=== PATIENT | female | born 1985 | race Caucasian/White ===

== ENCOUNTER 2016-04-14 20:03 | Emergency (ER) | payer OTHER ==
[~2016-04-14] VITALS: Ht 177.8 cm; Wt 195.0 kg
[~2016-04-14 20:03] MED LIST: 'KLONOPIN0.5 MG PO; AMBIEN10 M1 PO; AMOXICILLIN500 M2 PO; ANAPROX DS550 MG PO; BUSPAR15 MG PO; EFFEXOR XR150 M1 PO; HYDR25T PO; LAMICTAL200 MG PO; PREDNISONE10 MG PO; PRILOSEC20 M2 PO; PROZAC20 MG PO; Phenergan25 MG PO; SEROQUEL300 MG PO; VISTARIL50 MG PO; ZANTAC 150150 MG PO; ZOFRAN ODT4 MG SL
[2016-04-14 21:54] LABS: HEMATOCRIT 38.4 % (37.0-47.0); HEMOGLOBIN 12.3 g/dl (12.0-16.0); MEAN CELL VOLUME 83.5 fl (81.0-99.0); MEAN CORPUSCULAR HGB 26.7 pg (27.0-31.0); MEAN PLATELET VOLUME 11.6 fl (9.6-12.3); PLATELET COUNT AUTOMATED 336 10*3/uL (130-400); RED CELL DISTRI WIDTH 14.4 % (0-14.5); WHITE BLOOD COUNT 12.8 10*3/uL (4.8-10.8)
[2016-04-14 21:55] LABS: BILIRUBIN NEGATIVE (NEGATIVE); BLOOD NEGATIVE (NEGATIVE); CLARITY SL CLOUDY (CLEAR); COLOR YELLOW (YELLOW); GLUCOSE NEGATIVE (NEGATIVE); KETONE NEGATIVE (NEGATIVE); LEUKO ESTERASE TRACE (NEGATIVE); NITRITE NEGATIVE (NEGATIVE); PROTEIN NEGATIVE (NEGATIVE); UROBILINOGEN 0.2 E.U./dl (0.2-1.0)
[2016-04-14 22:09] LABS: ALBUMIN 3.7 gm/dl (3.1-4.5); ALKALINE PHOSPHATASE 121 U/L (45-117); BILIRUBIN, TOTAL 0.4 mg/dl (0.2-1.0); BUN 10 mg/dl (7-24); CARBON DIOXIDE 28 mmol/L (21-32); CHLORIDE 101 mmol/L (98-107); EST GLOM FILT AFRICAN AMERICAN > 60 ml/min; GLUCOSE 112 mg/dL (65-99); POTASSIUM 3.5 mmol/L (3.5-5.1); SGOT/AST 37 IU/L (3-35); SGPT/ALT 63 U/L (12-78); SODIUM 140 mmol/L (136-145); TOTAL PROTEIN 8.3 gm/dL (6.4-8.2)
[2016-04-14 22:19] LABS: RBC 0-2 rbc/hpf (0-2)
[2016-04-14 22:20] LABS: BACTERIA 2+; URINE REFLEX COMMENT YES (NO)
[2016-04-14 22:26] LABS: EOSINOPHIL # 0.3 10*3/uL (0-0.4); EOSINOPHILS 2 % (1-4); LYMPHOCYTE # 3.7 10*3/uL (1.3-4.4); NEUTROPHIL # 7.8 10*3/uL (2.3-7.9); NEUTROPHILS 61 % (47-73); PLATELET SUFFICIENCY NORMAL (NORMAL); TOTAL CELLS COUNTED 100 #CELLS
[2016-04-14] MEDS ORDERED: MACROBID100 M1 PO (23:06)
== END 2016-04-15 00:11 | disposition home or self-care (01) ==
LOC: ED 20:03
PROVIDERS: Nurse Practitioner Family
DX: N39.0 Urinary tract infection, site not specified (principal); F17.200 Nicotine dependence, unspecified, uncomplicated; Z90.49 Acquired absence of other specified parts of digestive tract; Z98.890 Other specified postprocedural states

== ENCOUNTER 2016-08-24 23:32 | Emergency (ER) | payer OTHER ==
[~2016-08-24] VITALS: Ht 177.8 cm
[~2016-08-24 23:32] MED LIST changes: +MACROBID100 M1 PO
[2016-08-25 00:23] LABS: BASO % 0.2 % (0.0-1.0); EOS # 0.2 10*3/uL (0.0-0.4); EOS % 1.4 % (1.0-4.0); HEMOGLOBIN 11.6 g/dl (12.0-16.0); LYMPH # 4.9 10*3/uL (1.3-4.4); LYMPH % 37.4 % (27.0-41.0); MEAN CELL VOLUME 84.1 fl (81.0-99.0); MEAN CORPUSCULAR HGB 26.4 pg (27.0-31.0); MEAN CORPUSCULAR HGB CONC 31.4 g/dl (33.0-37.0); MEAN PLATELET VOLUME 11.4 fl (9.6-12.3); MONO # 1.1 10*3/uL (0.1-1.0); MONO % 8.7 % (3.0-9.0); NEUT # 6.8 10*3/uL (2.3-7.9); PLATELET COUNT AUTOMATED 349 10*3/uL (130-400); RED CELL DISTRI WIDTH 14.6 % (0-14.5); WHITE BLOOD COUNT 13.1 10*3/uL (4.8-10.8)
[2016-08-25 00:41] LABS: ALBUMIN 3.4 gm/dl (3.1-4.5); ALKALINE PHOSPHATASE 125 U/L (45-117); BILIRUBIN, TOTAL 0.3 mg/dl (0.2-1.0); BUN 11 mg/dl (7-24); CARBON DIOXIDE 32 mmol/L (21-32); CHLORIDE 100 mmol/L (98-107); EST GLOM FILT AFRICAN AMERICAN > 60 ml/min; GLUCOSE 105 mg/dL (65-99); POTASSIUM 3.7 mmol/L (3.5-5.1); SGOT/AST 29 IU/L (3-35); SGPT/ALT 54 U/L (12-78); SODIUM 138 mmol/L (136-145); TOTAL PROTEIN 7.9 gm/dL (6.4-8.2)
== END 2016-08-25 01:38 | disposition home or self-care (01) ==
LOC: ED 23:32
PROVIDERS: Emergency Medicine
DX: F41.9 Anxiety disorder, unspecified (principal); Z90.49 Acquired absence of other specified parts of digestive tract; Z98.890 Other specified postprocedural states; Z79.899 Other long term (current) drug therapy

== ENCOUNTER 2016-12-29 10:10 | Emergency (ER) | payer OTHER ==
[~2016-12-29] VITALS: Ht 177.8 cm; Wt 208.7 kg
[2016-12-29] MEDS ORDERED: LIDEX 0.05% CRE15 GM T (10:20)
== END 2016-12-29 11:25 | disposition home or self-care (01) ==
LOC: ED 10:10
DX: L25.9 Unspecified contact dermatitis, unspecified cause (principal); R03.0 Elevated blood-pressure reading, without diagnosis of hypertension

== ENCOUNTER 2018-05-15 14:06 | Emergency (ER) | payer OTHER ==
[~2018-05-15] VITALS: Ht 177.8 cm; Wt 204.1 kg
[~2018-05-15 14:06] MED LIST changes: +LIDEX 0.05% CRE15 GM T
[2018-05-15] MEDS ORDERED: TAMIFLU 75MG CA75 MG PO (14:54)
== END 2018-05-15 15:15 | disposition home or self-care (01) ==
LOC: ED 14:06
DX: J10.1 Influenza due to other identified influenza virus with other respiratory manifestations (principal); Z79.2 Long term (current) use of antibiotics; Z79.899 Other long term (current) drug therapy; Z90.49 Acquired absence of other specified parts of digestive tract

== ENCOUNTER 2018-11-22 16:31 | Emergency (ER) | payer MEDICARE, OTHER ==
[~2018-11-22] VITALS: Ht 177.8 cm; Wt 208.7 kg
[~2018-11-22 16:31] MED LIST changes: +TAMIFLU 75MG CA75 MG PO
[2018-11-22] MEDS ORDERED: IBU800 MG PO (18:11)
== END 2018-11-22 18:31 | disposition home or self-care (01) ==
LOC: ED 16:31
DX: S80.02XA Contusion of left knee, initial encounter (principal); M25.561 Pain in right knee; Z79.899 Other long term (current) drug therapy; W01.198A Fall on same level from slipping, tripping and stumbling with subsequent striking against other object, initial encounter; Y93.89 Activity, other specified; Y92.89 Other specified places as the place of occurrence of the external cause; Y99.8 Other external cause status

== ENCOUNTER 2020-05-17 15:25 | Emergency (ER) | payer OTHER ==
[~2020-05-17] VITALS: Ht 177.8 cm; Wt 208.7 kg
[~2020-05-17 15:25] MED LIST changes: +IBU800 MG PO
[2020-05-17] MEDS ORDERED: IBUPROFEN600 MG PO (17:45)
== END 2020-05-17 18:21 | disposition home or self-care (01) ==
LOC: ED 15:25
DX: S80.02XA Contusion of left knee, initial encounter (principal); F32.9 Major depressive disorder, single episode, unspecified; F41.9 Anxiety disorder, unspecified; K21.9 Gastro-esophageal reflux disease without esophagitis; Z79.899 Other long term (current) drug therapy; W00.9XXA Unspecified fall due to ice and snow, initial encounter; Y93.89 Activity, other specified; Y92.89 Other specified places as the place of occurrence of the external cause; Y99.8 Other external cause status

== ENCOUNTER 2021-12-31 16:51 | Emergency (ER) | payer OTHER ==
[~2021-12-31] VITALS: Ht 177.8 cm; Wt 217.7 kg
[~2021-12-31 16:51] MED LIST changes: +IBUPROFEN600 MG PO
[2021-12-31 18:18] LABS: BASO # 0.1 10*3/uL (0.0-0.1); BASO % 0.3 % (0.0-1.0); EOS # 0.8 10*3/uL (0.0-0.4); EOS % 4.7 % (1.0-4.0); HEMATOCRIT 40.6 % (37.0-47.0); LYMPH # 4.7 10*3/uL (1.3-4.4); MEAN CELL VOLUME 85.8 fl (81.0-99.0); MEAN CORPUSCULAR HGB 27.7 pg (27.0-31.0); MEAN CORPUSCULAR HGB CONC 32.3 g/dl (33.0-37.0); MEAN PLATELET VOLUME 11.1 fl (9.6-12.3); MONO # 1.1 10*3/uL (0.1-1.0); MONO % 6.6 % (3.0-9.0); NEUT # 10.5 10*3/uL (2.3-7.9); PLATELET COUNT AUTOMATED 355 10*3/uL (130-400); RED BLOOD COUNT 4.73 10*6/uL (4.10-5.10); RED CELL DISTRI WIDTH 14.5 % (0-14.5); WHITE BLOOD COUNT 17.2 10*3/uL (4.8-10.8)
[2021-12-31 18:29] LABS: BILIRUBIN Negative (Negative); BLOOD Negative (Negative); CLARITY Clear (Clear); COLOR Yellow (Yellow); GLUCOSE Negative (Negative); KETONE Negative (Negative); LEUKO ESTERASE Negative (Negative); NITRITE Negative (Negative); PH 6.5 (4.5-8.0); UROBILINOGEN 0.2 E.U./dl (0.0-1.0)
[2021-12-31 18:34] LABS: ALKALINE PHOSPHATASE 151 U/L (45-117); BUN 11 mg/dl (7-24); CHLORIDE 103 mmol/L (98-107); CREATININE 0.79 mg/dL (0.55-1.02); LIPASE 169 U/L (73-393); POTASSIUM 3.7 mmol/L (3.5-5.1); SGOT/AST 18 IU/L (3-35); SODIUM 135 mmol/L (136-145); TOTAL PROTEIN 7.6 gm/dL (6.4-8.2)
[2021-12-31 18:40] LABS: SGPT/ALT 38 U/L (12-78)
[2021-12-31 18:47] LABS: WBC 0-2 wbc/hpf (0-5)
== END 2021-12-31 20:35 | disposition home or self-care (01) ==
LOC: ED 16:51
PROVIDERS: Nurse Practitioner Family
DX: R10.9 Unspecified abdominal pain (principal); Z79.899 Other long term (current) drug therapy; Z90.89 Acquired absence of other organs; Z90.49 Acquired absence of other specified parts of digestive tract; Z98.890 Other specified postprocedural states

== ENCOUNTER 2022-02-16 12:29 | Emergency (ER) | payer OTHER ==
[~2022-02-16] VITALS: Ht 177.8 cm; Wt 215.5 kg
[2022-02-16 13:55] LABS: BASO % 0.2 % (0.0-1.0); EOS # 0.4 10*3/uL (0.0-0.4); EOS % 2.9 % (1.0-4.0); HEMATOCRIT 39.9 % (37.0-47.0); LYMPH # 2.7 10*3/uL (1.3-4.4); LYMPH % 21.1 % (27.0-41.0); MEAN CELL VOLUME 85.6 fl (81.0-99.0); MEAN CORPUSCULAR HGB 27.3 pg (27.0-31.0); MEAN CORPUSCULAR HGB CONC 31.8 g/dl (33.0-37.0); MEAN PLATELET VOLUME 10.8 fl (9.6-12.3); MONO # 0.8 10*3/uL (0.1-1.0); MONO % 6.1 % (3.0-9.0); NEUT # 8.9 10*3/uL (2.3-7.9); PLATELET COUNT AUTOMATED 351 10*3/uL (130-400); RED BLOOD COUNT 4.66 10*6/uL (4.10-5.10); RED CELL DISTRI WIDTH 14.9 % (0-14.5); WHITE BLOOD COUNT 12.9 10*3/uL (4.8-10.8)
[2022-02-16 14:12] LABS: ALKALINE PHOSPHATASE 125 U/L (45-117); BUN 10 mg/dl (7-24); CHLORIDE 102 mmol/L (98-107); CREATININE 0.84 mg/dL (0.55-1.02); LIPASE 79 U/L (73-393); POTASSIUM 3.5 mmol/L (3.5-5.1); SGPT/ALT 52 U/L (12-78); SODIUM 137 mmol/L (136-145); TOTAL PROTEIN 8.2 gm/dL (6.4-8.2)
[2022-02-16 14:18] LABS: BETA-HCG, QUANT < 1.0 mIU/mL (1-3)
[2022-02-16 14:40] LABS: BILIRUBIN Negative (Negative); BLOOD 3+ (Negative); CLARITY Clear (Clear); COLOR Yellow (Yellow); GLUCOSE Negative (Negative); KETONE Negative (Negative); LEUKO ESTERASE 2+ (Negative); NITRITE Negative (Negative); UROBILINOGEN 0.2 E.U./dl (0.0-1.0)
[2022-02-16 15:00] LABS: BACTERIA 2+; RBC TNTC rbc/hpf (0-2)
[2022-02-16 15:01] LABS: WBC 16-20 wbc/hpf (0-5)
[2022-02-16] MEDS ORDERED: PHENERGAN25 M3 PO (16:43)
[2022-02-16] MEDS ORDERED: CIPRO500 MG PO (16:43)
[2022-02-16] MEDS ORDERED: Motrin,Rufen800 MG PO (16:43)
== END 2022-02-16 16:53 | disposition home or self-care (01) ==
LOC: ED 12:29
PROVIDERS: Emergency Medicine
DX: N39.0 Urinary tract infection, site not specified (principal); Z79.899 Other long term (current) drug therapy; Z90.89 Acquired absence of other organs; Z90.49 Acquired absence of other specified parts of digestive tract; Z98.890 Other specified postprocedural states

== ENCOUNTER 2022-05-19 19:06 | Emergency (ER) | payer OTHER ==
[~2022-05-19] VITALS: Ht 177.8 cm; Wt 222.3 kg
[~2022-05-19 19:06] MED LIST changes: +CIPRO500 MG PO; +Motrin,Rufen800 MG PO; +PHENERGAN25 M3 PO
[2022-05-19] MEDS ORDERED: LASIX40 MG PO (19:17)
[2022-05-19 20:01] LABS: ALKALINE PHOSPHATASE 115 U/L (46-116); BUN 10 mg/dl (9-23); CHLORIDE 102 mmol/L (98-107); POTASSIUM 3.9 mmol/L (3.4-5.1); SGPT/ALT 31 U/L (10-49); TOTAL PROTEIN 6.6 gm/dL (6.0-8.0)
[2022-05-19 20:02] LABS: HEMATOCRIT 40.1 % (37.0-47.0); MANUAL DIFF REFLEX YES; MEAN CELL VOLUME 85.1 fl (81.0-99.0); MEAN CORPUSCULAR HGB 27.4 pg (27.0-31.0); MEAN CORPUSCULAR HGB CONC 32.2 g/dl (33.0-37.0); MEAN PLATELET VOLUME 11.3 fl (9.6-12.3); PLATELET COUNT AUTOMATED 334 10*3/uL (130-400); RED BLOOD COUNT 4.71 10*6/uL (4.10-5.10); RED CELL DISTRI WIDTH 14.9 % (0-14.5); WHITE BLOOD COUNT 13.2 10*3/uL (4.8-10.8)
[2022-05-19 20:43] LABS: PLATELET SUFFICIENCY NORMAL (NORMAL); TOTAL CELLS COUNTED 100 #CELLS
[2022-05-19 21:11] LABS: BILIRUBIN Negative (Negative); BLOOD 3+ (Negative); CLARITY Cloudy (Clear); COLOR Orange (Yellow); GLUCOSE Negative (Negative); KETONE Negative (Negative); LEUKO ESTERASE 1+ (Negative); NITRITE Negative (Negative); SPECIFIC GRAVITY >= 1.030 (1.001-1.030); UROBILINOGEN 0.2 E.U./dl (0.0-1.0)
[2022-05-19 21:20] LABS: BACTERIA 1+; RBC TNTC rbc/hpf (0-2)
== END 2022-05-19 21:29 | disposition home or self-care (01) ==
LOC: ED 19:06
PROVIDERS: Emergency Medicine
DX: R07.89 Other chest pain (principal); F32.A Depression, unspecified; F41.9 Anxiety disorder, unspecified; K21.9 Gastro-esophageal reflux disease without esophagitis; I10 Essential (primary) hypertension; Z90.89 Acquired absence of other organs; Z90.49 Acquired absence of other specified parts of digestive tract; Z98.890 Other specified postprocedural states; Z79.899 Other long term (current) drug therapy

== ENCOUNTER 2022-08-01 12:54 | Emergency (ER) | payer OTHER ==
[~2022-08-01] VITALS: Ht 177.8 cm; Wt 229.5 kg
[~2022-08-01 12:54] MED LIST changes: +LASIX40 MG PO
[2022-08-01 15:01] LABS: BASO % 0.4 % (0.0-1.0); EOS # 0.3 10*3/uL (0.0-0.4); EOS % 2.9 % (1.0-4.0); LYMPH # 3.4 10*3/uL (1.3-4.4); LYMPH % 31.3 % (27.0-41.0); MEAN CELL VOLUME 86.6 fl (81.0-99.0); MEAN CORPUSCULAR HGB 27.9 pg (27.0-31.0); MEAN CORPUSCULAR HGB CONC 32.3 g/dl (33.0-37.0); MEAN PLATELET VOLUME 10.8 fl (9.6-12.3); MONO # 0.8 10*3/uL (0.1-1.0); MONO % 7.1 % (3.0-9.0); NEUT # 6.2 10*3/uL (2.3-7.9); PLATELET COUNT AUTOMATED 341 10*3/uL (130-400); RED BLOOD COUNT 4.62 10*6/uL (4.10-5.10); RED CELL DISTRI WIDTH 14.6 % (0-14.5); WHITE BLOOD COUNT 10.7 10*3/uL (4.8-10.8)
[2022-08-01 15:15] LABS: ACT PARTIAL THROMBO TIME 27.6 SECONDS (20.0-32.1)
[2022-08-01 15:18] LABS: ALKALINE PHOSPHATASE 116 U/L (46-116); BUN 9 mg/dl (9-23); CHLORIDE 104 mmol/L (98-107); POTASSIUM 3.7 mmol/L (3.4-5.1); SGPT/ALT 26 U/L (10-49); TOTAL PROTEIN 5.8 gm/dL (6.0-8.0)
[2022-08-01] MEDS ORDERED: K-TAB20 MEQ PO (17:16)
[2022-08-01] MEDS ORDERED: LASIX40 MG PO (17:16)
== END 2022-08-01 17:33 | disposition home or self-care (01) ==
LOC: ED 12:54
PROVIDERS: Family Medicine
DX: R60.0 Localized edema (principal)

== ENCOUNTER 2023-07-18 08:45 | Emergency (ER) | payer OTHER ==
[~2023-07-18] VITALS: Ht 177.8 cm; Wt 196.0 kg
[~2023-07-18 08:45] MED LIST changes: +K-TAB20 MEQ PO
[2023-07-18 09:23] LABS: BILIRUBIN Negative (Negative); BLOOD Negative (Negative); CLARITY Clear (Clear); COLOR Yellow (Yellow); GLUCOSE Negative (Negative); KETONE Negative (Negative); LEUKO ESTERASE Negative (Negative); NITRITE Negative (Negative); SPECIFIC GRAVITY 1.015 (1.001-1.030)
[2023-07-18 09:31] LABS: WBC 0-2 wbc/hpf (0-5)
[2023-07-18] MEDS ORDERED: VRAYLAR6 MG PO (09:35)
[2023-07-18] MEDS ORDERED: CLONAZEPAM0.5 M2 PO (09:35)
[2023-07-18] MEDS ORDERED: PRAZOSIN HYDROCH5 MG PO (09:36)
[2023-07-18] MEDS ORDERED: LAMOTRIGINE200 MG PO (09:37)
[2023-07-18] MEDS ORDERED: MIRTAZAPINE45 MG PO (09:38)
[2023-07-18] MEDS ORDERED: OMEPRAZOLE MAGN20 MG PO (09:39)
[2023-07-18 10:09] LABS: BASO % 0.2 % (0.0-1.0); EOS # 1.1 10*3/uL (0.0-0.4); EOS % 8.6 % (1.0-4.0); HEMATOCRIT 40.1 % (37.0-47.0); LYMPH # 3.8 10*3/uL (1.3-4.4); LYMPH % 29.9 % (27.0-41.0); MEAN CELL VOLUME 86.8 fl (81.0-99.0); MEAN CORPUSCULAR HGB 26.8 pg (27.0-31.0); MEAN CORPUSCULAR HGB CONC 30.9 g/dl (33.0-37.0); MEAN PLATELET VOLUME 12.3 fl (9.6-12.3); MONO # 0.6 10*3/uL (0.1-1.0); MONO % 5.1 % (3.0-9.0); NEUT # 7.1 10*3/uL (2.3-7.9); NEUT % 55.9 % (47.0-73.0); PLATELET COUNT AUTOMATED 294 10*3/uL (130-400); RED BLOOD COUNT 4.62 10*6/uL (4.10-5.10); RED CELL DISTRI WIDTH 14.7 % (0-14.5); WHITE BLOOD COUNT 12.6 10*3/uL (4.8-10.8)
[2023-07-18 10:44] LABS: ALKALINE PHOSPHATASE 107 U/L (46-116); BUN 7 mg/dl (9-23); CHLORIDE 102 mmol/L (98-107); LIPASE 37 U/L (12-53); POTASSIUM 3.6 mmol/L (3.4-5.1); SGPT/ALT 40 U/L (5-49); TOTAL PROTEIN 7.6 gm/dL (6.0-8.0)
== END 2023-07-18 11:37 | disposition home or self-care (01) ==
LOC: ED 08:45
PROVIDERS: Internal Medicine
DX: R07.89 Other chest pain (principal); F32.A Depression, unspecified; F41.9 Anxiety disorder, unspecified; I10 Essential (primary) hypertension; K21.9 Gastro-esophageal reflux disease without esophagitis; Z90.89 Acquired absence of other organs; Z90.49 Acquired absence of other specified parts of digestive tract; Z98.890 Other specified postprocedural states

== ENCOUNTER 2023-08-12 14:28 | Emergency (ER) | payer OTHER ==
[~2023-08-12] VITALS: Ht 177.8 cm; Wt 192.8 kg
[~2023-08-12 14:28] MED LIST changes: +CLONAZEPAM0.5 M2 PO; +LAMOTRIGINE200 MG PO; +MIRTAZAPINE45 MG PO; +OMEPRAZOLE MAGN20 MG PO; +PRAZOSIN HYDROCH5 MG PO; +VRAYLAR6 MG PO
[2023-08-12] MEDS ORDERED: IBUPROFEN 800 MG TAB PO ONE (14:40)
[2023-08-12 14:57] LABS: BASO % 0.2 % (0.0-1.0); EOS # 0.7 10*3/uL (0.0-0.4); EOS % 4.3 % (1.0-4.0); HEMATOCRIT 40.7 % (37.0-47.0); LYMPH # 4.3 10*3/uL (1.3-4.4); LYMPH % 27.9 % (27.0-41.0); MEAN CELL VOLUME 86.6 fl (81.0-99.0); MEAN CORPUSCULAR HGB CONC 31.2 g/dl (33.0-37.0); MEAN PLATELET VOLUME 12.3 fl (9.6-12.3); MONO # 1.1 10*3/uL (0.1-1.0); NEUT # 9.4 10*3/uL (2.3-7.9); NEUT % 60.2 % (47.0-73.0); PLATELET COUNT AUTOMATED 312 10*3/uL (130-400); RED CELL DISTRI WIDTH 14.8 % (0-14.5); WHITE BLOOD COUNT 15.5 10*3/uL (4.8-10.8)
[2023-08-12 15:23] LABS: ALKALINE PHOSPHATASE 127 U/L (46-116); BUN 10 mg/dl (9-23); CHLORIDE 100 mmol/L (98-107); POTASSIUM 3.4 mmol/L (3.4-5.1); SGPT/ALT 25 U/L (5-49); TOTAL PROTEIN 8.1 gm/dL (6.0-8.0)
[2023-08-12] MEDS ORDERED: VIBRAMYCIN100 MG PO (15:29)
[2023-08-12] MEDS ORDERED: CEPHALEXIN500 M1 PO (15:29)
[2023-08-12] MEDS ORDERED: FLUONAZOLE150 M1 PO (15:29)
== END 2023-08-12 15:32 | disposition home or self-care (01) ==
LOC: ED 14:28
PROVIDERS: Physician Assistant Medical
DX: L03.311 Cellulitis of abdominal wall (principal); F32.A Depression, unspecified; F41.9 Anxiety disorder, unspecified; I10 Essential (primary) hypertension; K21.9 Gastro-esophageal reflux disease without esophagitis; Z90.49 Acquired absence of other specified parts of digestive tract; Z90.89 Acquired absence of other organs; Z98.890 Other specified postprocedural states

== ENCOUNTER 2023-11-06 20:13 | Emergency (ER) | payer OTHER ==
[~2023-11-06] VITALS: Ht 177.8 cm; Wt 192.8 kg
[~2023-11-06 20:13] MED LIST changes: +CEPHALEXIN500 M1 PO; +FLUONAZOLE150 M1 PO; +VIBRAMYCIN100 MG PO
[2023-11-06] MEDS ORDERED: methylPREDNISolone sod succ 125 MG VIAL IM ONE (20:55)
[2023-11-06] MEDS ORDERED: METHOCARBAMOL 500 MG TAB PO ONE (20:55)
[2023-11-06] MEDS ORDERED: PREDNISONE20 M1 PO (21:03)
[2023-11-06] MEDS ORDERED: METHOCARBAMOL750 M1 PO (21:03)
== END 2023-11-06 21:08 | disposition home or self-care (01) ==
LOC: ED 20:13
DX: S39.011A Strain of muscle, fascia and tendon of abdomen, initial encounter (principal); F32.A Depression, unspecified; F41.9 Anxiety disorder, unspecified; I10 Essential (primary) hypertension; K21.9 Gastro-esophageal reflux disease without esophagitis; Z90.89 Acquired absence of other organs; Z90.49 Acquired absence of other specified parts of digestive tract; Z98.890 Other specified postprocedural states; X58.XXXA Exposure to other specified factors, initial encounter; Y93.89 Activity, other specified; Y92.009 Unspecified place in unspecified non-institutional (private) residence as the place of occurrence of the external cause; Y99.8 Other external cause status

== ENCOUNTER 2024-06-18 08:00 | Emergency (ER) | payer OTHER ==
[~2024-06-18] VITALS: Ht 177.8 cm; Wt 192.1 kg
[~2024-06-18 08:00] MED LIST changes: +METHOCARBAMOL750 M1 PO; +PREDNISONE20 M1 PO
[2024-06-18] MEDS ORDERED: CELECOXIB200 M1 PO (08:10)
[2024-06-18] MEDS ORDERED: PREGABALIN75 MG PO (08:10)
[2024-06-18] MEDS ORDERED: OZEMPIC1 MG/0.71 SQ (08:11)
[2024-06-18] MEDS ORDERED: Ondansetron Hydrochloride 4 MG/2 ML VIAL IV ONE (08:25)
[2024-06-18] MEDS ORDERED: SODIUM CHLORIDE 0.9% 500 ML IV ONE (08:25)
[2024-06-18 08:38] LABS: BASO % 0.4 % (0.0-1.0); EOS # 0.6 10*3/uL (0.0-0.4); EOS % 6.2 % (1.0-4.0); HEMATOCRIT 38.6 % (37.0-47.0); MEAN CELL VOLUME 85.8 fl (81.0-99.0); MEAN CORPUSCULAR HGB 26.9 pg (27.0-31.0); MEAN CORPUSCULAR HGB CONC 31.3 g/dl (33.0-37.0); MEAN PLATELET VOLUME 11.3 fl (9.6-12.3); MONO % 9.6 % (3.0-9.0); NEUT # 4.9 10*3/uL (2.3-7.9); NEUT % 48.6 % (47.0-73.0); PLATELET COUNT AUTOMATED 288 10*3/uL (130-400)
[2024-06-18 09:00] LABS: BILIRUBIN Negative (Negative); BLOOD Negative (Negative); CLARITY Clear (Clear); COLOR Yellow (Yellow); GLUCOSE Negative (Negative); KETONE Negative (Negative); LEUKO ESTERASE Negative (Negative); NITRITE Negative (Negative); PH 6.5 (4.5-8.0); SPECIFIC GRAVITY 1.015 (1.001-1.030); UROBILINOGEN 0.2 E.U./dl (0.0-1.0)
[2024-06-18 09:00] LABS: ALKALINE PHOSPHATASE 94 U/L (46-116); BUN 10 mg/dl (9-23); CHLORIDE 101 mmol/L (98-107); LIPASE 43 U/L (12-53); POTASSIUM 3.5 mmol/L (3.4-5.1); SGPT/ALT 27 U/L (5-49); TOTAL PROTEIN 7.6 gm/dL (6.0-8.0)
[2024-06-18 09:08] LABS: MUCOUS TRACE; RBC 0-2 rbc/hpf (0-2)
[2024-06-18] MEDS ORDERED: Metoclopramide Hydrochloride 10 MG/2 ML VIAL IV ONE (11:25)
[2024-06-18] MEDS ORDERED: diphenhydrAMINE hydrochloride 50 MG/ML VIAL IV ONE (11:25)
[2024-06-18] MEDS ORDERED: REGLAN10 M1 PO (11:57)
== END 2024-06-18 12:06 | disposition home or self-care (01) ==
LOC: ED 08:00
PROVIDERS: Internal Medicine
DX: R10.84 Generalized abdominal pain (principal); R11.0 Nausea; T50.905A Adverse effect of unspecified drugs, medicaments and biological substances, initial encounter; I10 Essential (primary) hypertension; F32.A Depression, unspecified; F41.9 Anxiety disorder, unspecified; Z79.899 Other long term (current) drug therapy; Z90.49 Acquired absence of other specified parts of digestive tract; Z90.89 Acquired absence of other organs; Z98.890 Other specified postprocedural states; Y92.89 Other specified places as the place of occurrence of the external cause

== ENCOUNTER 2024-07-25 17:33 | Emergency (ER) | payer OTHER ==
[~2024-07-25] VITALS: Ht 177.8 cm; Wt 189.6 kg
[~2024-07-25 17:33] MED LIST changes: +CELECOXIB200 M1 PO; +OZEMPIC1 MG/0.71 SQ; +PREGABALIN75 MG PO; +REGLAN10 M1 PO
== END 2024-07-25 19:53 | disposition left against medical advice (07) ==
LOC: ED 17:33
DX: M79.671 Pain in right foot (principal); F41.9 Anxiety disorder, unspecified; F32.A Depression, unspecified; Z53.29 Procedure and treatment not carried out because of patient's decision for other reasons; Z79.899 Other long term (current) drug therapy; Z98.890 Other specified postprocedural states; Z90.49 Acquired absence of other specified parts of digestive tract; W18.39XA Other fall on same level, initial encounter; Y93.89 Activity, other specified; Y92.89 Other specified places as the place of occurrence of the external cause; Y99.8 Other external cause status